=== PATIENT | male | born 1955 | race Caucasian/White ===

== ENCOUNTER 2021-12-23 09:38 | Outpatient (CLI) | payer OTHER, SELFPAY ==
--- NOTE | ~2021-12-23 | US_ITS ---
EXAMINATION: US abdomen complete DATE: 12/23/2021 10:09 INDICATION: Right upper quadrant pain TECHNIQUE: Multiple grayscale and Doppler ultrasound images of the abdomen were obtained. COMPARISON: None available FINDINGS: Bowel gas obscures visualization of the pancreas. The liver is normal with normal echogenic ity and echotexture. No surface nodularity. Normal hepatopetal flow in the main portal vein. The gall bladder is difficult to image due to its position in the abdomen however no definite abnormality of t he gallbladder is seen. The normal common bile duct measures 4 mm. There was no sonographic [place] si gn. The visualized portions of the aorta and inferior vena cava are normal. The right kidney measures 11.4 x 3.9 x 5.9 cm. The left kidney measures 10.8 x 4.4 x 5.7 cm. The kidn eys demonstrate normal parenchymal echogenicity. There is no hydronephrosis. The spleen is normal in appearance and measures 8.6 cm. IMPRESSION: 1. No sonographic correlate for the patient's symptoms. Reviewed, dictated and finalized at location A.
== END 2021-12-23 09:39 | disposition home or self-care (01) ==
LOC: ANHIMG 09:42
PROVIDERS: PCP Family Medicine; Visit Provider Physician Assistant
DX: R10.11 Right upper quadrant pain (principal)
CPT/HCPCS: 76700

== ENCOUNTER → 2023-03-17 13:54 | Outpatient (CLI) | payer OTHER, SELFPAY ==
--- NOTE | ~2023-03-17 | XR_ITS ---
EXAMINATION: XR chest 2V DATE: 03/17/2023 14:04 INDICATION: Cough. TECHNIQUE: Frontal and lateral views of the chest were obtained. COMPARISON: Chest 2 views 11/08/2012 FINDINGS: There is chronic mild elevation of right hemidiaphragm. There is mild atelectasis at the kacie ng bases. No pleural effusion or pneumothorax. The heart size is normal. IMPRESSION: 1. Mild atelectasis at the lung bases. Reviewed, dictated and finalized at location E. UNCHER
== END ==
PROVIDERS: PCP Family Medicine; Visit Provider Physician Assistant
DX: J98.11 Atelectasis (principal); R05.9 Cough, unspecified
CPT/HCPCS: 71046

== ENCOUNTER 2024-04-10 00:10 | Day surgery (SDC) | payer OTHER, SELFPAY ==
[2024-03-30 13:46] VITALS: BMI 35.8
--- OUTSIDE RECORDS SUMMARY | 2024-04-10 00:13 | XMS_ITS | Clinical Summary ---
Author Organization [facility] Address [address] [place] [address]. [place], [place] [id number] [place] [id number] Care Team Providers Care Counterintelligence Analyst Name Role Phone Sj Clemens MD Primary Care Provider [phone] Allergies Active Allergy Reactions Criticality Noted Date Comments Allopurinol Rash Low 08/14/2020 Medications finasteride 5 MG tablet Take 1 tablet (5 mg total) by mouth daily. 07/05/2020 Active losartan 50 MG tablet Take 1 tablet (50 mg total) by mouth daily. 07/07/2020 Active metoprolol tartrate 50 MG tablet Take 1 tablet (50 mg total) by mouth daily. 08/03/2020 Active terazosin 1 MG capsule Take 1 capsule (1 mg total) by mouth daily. 07/01/2020 Active loratadine 10 MG tablet Take 1 tablet (10 mg total) by mouth daily. Active atorvastatin 40 MG tablet Take 0.5 tablets (20 mg total) by mouth daily. 09/01/2020 Active Multiple Vitamin (MULTIVITAMIN ADULT OR) Take 1 tablet by mouth daily. Active Calcium Carbonate (CALCIUM 600 OR) Take 600 mg by mouth 2 (two) times a day. Active febuxostat (ULORIC) 40 MG tablet Take 1 tablet (40 mg total) by mouth daily. 10/20/2022 Active levothyroxine (SYNTHROID) 175 MCG tablet Take 1 tablet (175 mcg total) by mouth every morning. 10/07/2022 Active ibuprofen (MOTRIN) 200 MG tablet Take 2 tablets (400 mg total) by mouth every 6 (six) hours as needed for Pain. Active Active Problems Problem Noted Date Diagnosed Date Acute appendicitis 12/03/2022 BPH with obstruction/lower urinary tract symptom s 10/19/2021 H/O urethral stricture 10/19/2021 Acquired hypothyroidism 04/09/2021 Coronary artery disease invo lving [place] coronary artery of [place] heart without angina pectoris 04/09/2021 Dyslipidemia 04/09/2021 Essential hypertension 04/09/2021 History of coronary angioplasty with insertion o f stent 04/09/2021 Nephrolithiasis 09/01/2020 Encounters Date Type Department Care Team Description 02/28/2024 12:43 PM BOAT BUILDER AND REPAIRER - 02/28/2024 11:59 PM BOAT BUILDER AND REPAIRER Hospital Encounter [facility] [place] [address] Queta Amin, OIL GAUGER Discharge Disposition: Home or Self Care (Routine Discharge) 02/28/[address] [facility] [place] [address] Queta Amin, BONNIE 02/28/2024 Travel 01/30/2024 1:15 PM BOAT BUILDER AND REPAIRER - 01/30/2024 11:59 PM BOAT BUILDER AND REPAIRER Hospital Encounter [facility] [place] [address] Queta Amin, OIL GAUGER Discharge Disposition: Home or Self Care (Routine Discharge) 01/30/[address] [facility] [place] [address] Queta Aimn, OIL GAUGER 01/30/2024 Travel from Last 3 Months Immunizations Name Administration Dates Next Due Flu Vaccine, 3 Yrs 12/16/2015 Fluzone High Dose - >Age 65 (Prefilled Syringe) 12/14/2021 Influenza (Generic) 02/03/2021,12/18/2014,2012 Influenza Adult (Generic) 01/05/2020,12/10/2018, 02/15/2018 MODERNA COVID-19 (12+) MRNA, LNP-S, PF, 100 MCG/ 0.5 ML DOSE 04/25/2020,03/27/2020 Pneumococcal (Pneumovax 23) 02/03/2021 Pneumococcal (Prevnar 13) 11/27/2018 Tdap (Generic) 11/27/2018 Family History Relation Status Comments Father Mother Social History Tobacco Use Types Packs/Day Years Used Date Smoking Tobacco: Never Smokeless Tobacco: Never Tobacco Cessation:Counseling Given: No Alcohol Use Standard Drinks/Week Comments Yes 1.7 (1 standard drink = 0.6 oz p ure alcohol) ocassionally Humiliation, Afraid, Rape, and Kick questionnair e Answer Date Recorded Within the last year, have y ou been afraid of your partner or ex-partner? No 12/08/2022 Within the last year, have y ou been humiliated or emotionally abused in other ways by your partner or ex-partner? No Within the last year, have y ou been kicked, hit, slapped, or otherwise physically hurt by your partner or ex-partner? No 12/08/2022 Within the last year, have y ou been raped or forced to have any kind of sexual activity by your partner or ex-partner? No 12/08/2022 Overall Financial Resource Strain (CARDIA) Answe r Date Recorded How hard is it for you to pa y for the very basics like food, housing, medical care, and heating? Not very hard 12/08/2022 PHQ-2 Answer Date Recorded Patient Health Questionnaire-2 Score 0 03/22/2022 Hunger Vital Sign Answer Date Recorded Within the past 12 months, y ou worried that your food would run out before you got the money to buy more. Never true 12/09/19 23 Within the past 12 months, t he food you bought just didn't last and you didn't have money to get more. Never true 12/08/2022 PRAPARE - Transportation Answer Date Re corded In the past 12 months, has l ack of transportation kept you from medical appointments or from getting medications? No 11/13 In the past 12 months, has l ack of transportation kept you from meetings, work, or from getting things needed for daily living? No 12/08/2022 Housing Stability Vital Sign Answer Tom e Recorded In the last 12 months, was t here a time when you were not able to pay the mortgage or rent on time? No 12/08/2022 In the last 12 months, how many places have you lived? 1 12/08/2022 In the last 12 months, was t here a time when you did not have a steady place to sleep or slept in a intermediate (including now)? No 12/08/2022 Sex and Gender Information Value Date Recorded Sex Assigned at Not on file Legal Sex Male 10:57 AM CDT Gender Identity Male 04/21/2021 10:19 AM BOAT BUILDER AND REPAIRER Sexual Orientation Straight 04/21/2021 10 :19 AM BOAT BUILDER AND REPAIRER Last Filed Vital Signs Vital Sign Reading Time Taken Comments Blood Pressure 147/93 12/10/2022 8:10 AM CDT Pulse 57 12/10/2022 8:10 AM CDT Temperature 36.5 ??C (97.7 ??F) 12/10/2022 8:10 AM CD T Respiratory Rate 19 12/10/2022 8:10 AM CDT Oxygen Saturation 97% 12/10/2022 8:10 AM CDT Inhaled Oxygen Concentration - - Weight 115.8 kg (255 lb 4.7 oz) 12/10/2022 4:53 AM CDT Height 177.8 cm (5' 10 ) 12/03/2022 8:40 AM CDT Body Mass Index 36.63 12/03/2022 8:40 AM CDT Plan of Treatment Health Maintenance Due Date Last Done Comments ASCVD Statin 1955 Colorectal Cancer Screening Colonoscopy (10 Years) 1955 Diabetes: Retinopathy Eye Exam 11/25/1973 Zoster Vaccines (1 of 2) 11/25/2005 RSV Immunization or 60+ Years (1 - Risk 60-74 years 1-dose series) 2015 Annual Medicare Wellness Visit 11/25/2020 Hemoglobin A1C 03/25/2023 09/22/2022, 04/22/2021 COVID-19 Vaccine ( season) 2023 04/25/2020, 03/27/2020 Influenza Adult (#1) 2023 12/14/2021, 02/03/2021, 01/05/2020, Additional history exists Kidney Health Evaluation 02/27/2025 02/28/2024 Lipid Panel 02/27/2025 02/28/2024, 01/12, 09/22/2022, Additional history exists DTaP, Tdap and Td Vaccines (2 - Td or Tdap) 11/27/2028 11/27/2018 Pneumococcal Vaccine: 65+ Years Completed 02/03/2021, 11/27/2018 Hepatitis C Completed 02/28/2024, 01/30/2024 Meningococcal B Vaccine Aged Out No l onger eligible based on patient's age to complete this topic Meningococcal Vaccine Aged Out No akshat mason eligible based on patient's age to complete this topic RSV Immunizations Under 20 Months Aged Out No longer eligible based on patient's age to complete this topic Goals Goal Patient Goal Type Associated Problems Recent Progress Patient-Stated? Author Health - patient able to perform ADLs independently Lifestyle No Joey sanchez, Enrique Villalta, RN Medical Devices Implanted Type Area Special Deputy Sheriff Device Identifier Shelf Expiration Date Model / Serial / Lot Stent Ureteral Pigtail 6fr 24cm Crv Taper Tip - [id number] Implanted:Qty : 1 on 01/16/2021 by Ramírez Loyd MD at [facility] Stent Right: Ureter [employer] [id number] 10/23/2023 [id number] / / [id number] Urolift - [id number] Implanted:Qty : 2 on 01/22/2022 by Ramírez Loyd MD at [facility] Urology [employer] [id number] 08/18/2023 [id number] / / [id number] Explanted Type Area Special Deputy Sheriff Device Identifier Shelf Expiration Date Model / Serial / Lot Stent Bard [place] 6fr X 24cm - [id number] Implanted:Qty : 1 on 08/22/2020 by Ramírez Loyd MD at [facility] Explanted:Qty : 1 on 01/16/2021 by Ramírez Loyd MD at [facility] Left: Ureter [employer] [id number] 08/03/2023 [id number] / / [id number] Procedures Procedure Name Priority Date/Time Associated Diagnosis Comments PROSTATE SPECIFIC ANTIGEN,TOTAL Routine 02/28/2024 1:02 PM BOAT BUILDER AND REPAIRER Hypothyroidism Hyperlipidemia, mixed Chronic kidney disease, unspecified Diabetic complication (CMS/HCC HHS/HCC) Special screening for malignant neoplasm of prostate Need for hepatitis C screening test HEPATITIS C ANTIBODY Routine 02/28/2024 1:02 PM BOAT BUILDER AND REPAIRER Diabetes mellitus (CMS/HCC HHS/HCC) Hypothyroidism Hyperlipidemia, mixed Chronic kidney disease, unspecified Diabetic complication (CMS/HCC HHS/HCC) Special screening for malignant neoplasm of prostate Need for hepatitis C screening test CBC W/DIFF AUTOMATED Routine 02/28/2024 1:02 PM BOAT BUILDER AND REPAIRER Diabetes mellitus (CMS/HCC HHS/HCC) Hypothyroidism Hyperlipidemia, mixed Chronic kidney disease, unspecified Diabetic complication (CMS/HCC HHS/HCC) Special screening for malignant neoplasm of prostate Need for hepatitis C screening test LIPID PANEL Routine 02/28/2024 1:02 PM BOAT BUILDER AND REPAIRER Diabetes mellitus (CMS/HCC HHS/HCC) Hypothyroidism Hyperlipidemia, mixed Chronic kidney disease, unspecified Diabetic complication (CMS/HCC HHS/HCC) Special screening for malignant neoplasm of prostate Need for hepatitis C screening test FERRITIN Routine 02/28/2024 1:02 PM BOAT BUILDER AND REPAIRER Diabetes mellitus (CMS/HCC HHS/HCC) Hypothyroidism Hyperlipidemia, mixed Chronic kidney disease, unspecified Diabetic complication (CMS/HCC HHS/HCC) Special screening for malignant neoplasm of prostate Need for hepatitis C screening test IRON SAT PANEL (IRON,IBC,%SAT) Routine 02/28/2024 1:02 PM BOAT BUILDER AND REPAIRER Diabetes mellitus (CMS/HCC HHS/HCC) Hypothyroidism Hyperlipidemia, mixed Chronic kidney disease, unspecified Diabetic complication (CMS/HCC HHS/HCC) Special screening for malignant neoplasm of prostate Need for hepatitis C screening test ALBUMIN URINE RANDOM W/CREATININE Routine 02/28/2024 12:57 PM BOAT BUILDER AND REPAIRER Diabetes mellitus (CMS/HCC HHS/HCC) HEPATITIS C ANTIBODY Routine 01/30/2024 1:27 PM BOAT BUILDER AND REPAIRER Hypothyroidism Mixed hyperlipidemia Chronic kidney disease, unspecified Diabetic complication (CMS/HCC HHS/HCC) Screening for prostate cancer Special screening examination for viral disease CBC W/DIFF AUTOMATED Routine 01/30/2024 1:27 PM BOAT BUILDER AND REPAIRER Hypothyroidism Mixed hyperlipidemia Chronic kidney disease, unspecified Diabetic complication (CMS/HCC HHS/HCC) Screening for prostate cancer Special screening examination for viral disease LIPID PANEL Routine 01/30/2024 1:27 PM BOAT BUILDER AND REPAIRER Hypothyroidism Mixed hyperlipidemia PROSTATE SPECIFIC ANTIGEN,SCREENING Routine 01/30/2024 1:27 PM BOAT BUILDER AND REPAIRER Screening for prostate cancer FERRITIN Routine 01/30/2024 1:27 PM BOAT BUILDER AND REPAIRER Hypothyroidism Mixed hyperlipidemia Chronic kidney disease, unspecified Diabetic complication (CMS/HCC HHS/HCC) Screening for prostate cancer Special screening examination for viral disease IRON SAT PANEL (IRON,IBC,%SAT) Routine 01/30/2024 1:27 PM BOAT BUILDER AND REPAIRER Hypothyroidism Mixed hyperlipidemia Chronic kidney disease, unspecified Diabetic complication (CMS/HCC HHS/HCC) Screening for prostate cancer Special screening examination for viral disease HEMOGLOBIN, GLYCOSYLATED Routine 09/22/2022 8:57 AM CDT Type 2 diabetes mellitus with complications (CMS/HCC HHS/HCC) Obesity, unspecified Mixed hyperlipidemia Hypothyroidism Gout, unspecified Essential (primary) hypertension Encounter for long-term (current) drug use from Last 3 Months or Most Recently Relevant to Health Maintenance Results * IRON SAT PANEL (IRON,IBC,%SAT) (02/28/2024 1:02 PM BOAT BUILDER AND REPAIRER) Only the most recent of2 resultswithin the time period is included. IRON 118 65.0 - 175.0 MCG/DL 02/28/2024 2:17 PM BOAT BUILDER AND REPAIRER [facility] IRON BINDING CAPACITY 308 250 - 450 MCG/DL 02/28/2024 2:17 PM [facility] IRON SATURATION 38 20 - 55 % 4 2:17 PM [facility] 02/28/2024 1:02 PM BOAT BUILDER AND REPAIRER Queta Amin OIL GAUGER LABORATORY Final Resu lt Performing Organization Address City/[facility]/ZIP Co de Phone Number [facility] [address] [place] [address], [place] [phone] * PROSTATE SPECIFIC ANTIGEN,TOTAL (02/28/2024 1:02 PM BOAT BUILDER AND REPAIRER) PSA 0.08 <4.00 NG/ML 02/28/2024 2:21 PM BOAT BUILDER AND REPAIRER [facility] Comment: Test was performed using the Siemens method. ??Results obtained with other assay methods or kits cannot be used interchangeably with results obtained by the Siemens method. 02/28/2024 1:02 PM BOAT BUILDER AND REPAIRER Queta Amin OIL GAUGER LABORATORY Final Resu lt Performing Organization Address [facility] Co de Phone Number [facility] [address] [place] [address], [place] [phone] * (ABNORMAL) LIPID PANEL (02/28/2024 1:02 PM BOAT BUILDER AND REPAIRER) Only the most recent of2 resultswithin the time period is included. CHOLESTEROL 142 <200 MG/DL 02/28/2024 2:17 PM BOAT BUILDER AND REPAIRER [facility] TRIGLYCERIDES 241(H) <150 MG/DL 02/28/2024 2:17 PM BOAT BUILDER AND REPAIRER [facility] HDL 50 >40.0 MG/DL 02/28/2024 2:17 PM BOAT BUILDER AND REPAIRER [facility] LDL (CALCULATED) 44 <100 MG/DL 02/28/2024 2:17 PM BOAT BUILDER AND REPAIRER [facility] NON HDL CHOLESTEROL 92 <130 MG/DL 02/28/2024 2:17 PM BOAT BUILDER AND REPAIRER [facility] CHOL/HDL RATIO 2.8 0.0 - 4.5 02/28/2024 2:17 PM [facility] VLDL CALCULATION 48 5 - 55 MG/DL 02/28/2024 2:17 PM [facility] LIPID INTERPRETATION 02/28/2024 2:17 PM [facility] Comment: NIH CONCENSUS REPORT RECOMMENDATIONS: ?ADULT ?CHILD ??LOW RISK: ?CHOLESTEROL ? <200 ? <170 ?TRIGLYCERIDE ?<150 ?--- ?HDL ? >=60 ?--- ?LDL ? <100 ? <110 ??BORDERLINE: ?CHOLESTEROL ? 200-239 ?? 170-199 ?TRIGLYCERIDE ?150-199 ? --- ?HDL ?40-59 ?--- ?LDL ? 100-159 ?? 110-129 ??HIGH RISK: ?CHOLESTEROL ? >=240 ?>=200 ?TRIGLYCERIDE ?>=200 ? --- ?HDL ?<40 ?--- ?LDL ? >=160 ?>=130 02/28/2024 1:02 PM BOAT BUILDER AND REPAIRER Queta Amin OIL GAUGER LABORATORY Final Resu lt Performing Organization Address City/[facility] Co de Phone Number [facility] [address] [place] [address], * HEPATITIS C ANTIBODY W/REFLEX (02/28/2024 1:02 PM BOAT BUILDER AND REPAIRER) Only the most recent of2 resultswithin the time period is included. Pathologist [facility] HEPATITIS C AB NON-REACTI VE NON-REACTI VE 02/28/2024 3:05 PM BOAT BUILDER AND REPAIRER [facility] 02/28/2024 1:02 PM BOAT BUILDER AND REPAIRER Queta Amin OIL GAUGER LABORATORY Final Resu lt Performing Organization Address [facility] Co de Phone Number [facility] [address] [place] [address], [place] [phone] * (ABNORMAL) CBC W/DIFF AUTOMATED (02/28/2024 1:02 PM BOAT BUILDER AND REPAIRER) Only the most recent of2 resultswithin the time period is included. WBC 7.33 4.5 - 11.0 x10'3/uL 02/28/2024 2:05 PM BOAT BUILDER AND REPAIRER [facility] RBC 4.51(L) 4.70 - 6.10 x10'6/uL 02/28/2024 2:05 PM [facility] HGB 13.6(L) 14.0 - 18.0 G/DL 02/28/2024 2:05 PM [facility] HCT 42.1(L) 43.0 - 54.0 % 02/28/2024 2:05 PM [facility] MCV 93.3 80.0 - 94.0 FL 02/28/2024 2:05 PM [facility] MCH 30.2 27.0 - 31.0 PG 02/28/2024 2:05 PM [facility] MCHC 32.3 32.0 - 36.0 G/DL 02/28/2024 2:05 PM [facility] RDW 13.4 11.5 - 14.5 % 02/28/2024 2:05 PM [facility] PLT 178 130 - 400 x10'3/uL 02/28/2024 2:05 PM [facility] MPV 11.6 9.3 - 12.2 FL 02/28/2024 2:05 PM [facility] DIFFERENTIAL TYPE AUTOMATED DIFFERENTIAL 02/28/2024 2:05 PM [facility] NEUTROPHILS % 67.7 % 02/28/2024 2:05 PM [facility] LYMPHOCYTES % 21.1 % 02/28/2024 2:05 PM [facility] MONOCYTES % 7.0 % 02/28/2024 2:05 PM [facility] EOSINOPHILS 3.0 % 02/28/2024 2:05 PM [facility] BASOPHILS 0.4 % 02/28/2024 2:05 PM [facility] IMMATURE GRANS % 0.8 % 02/28/20 2:05 PM [facility] ABS. NEUTROPHILS 4.96 1.80 - 7.70 x10'3/uL 02/28/2024 2:05 PM [facility] ABS. LYMPHOCYTES 1.55 1.00 - 4.80 x10'3/uL 02/28/2024 2:05 PM BOAT BUILDER AND REPAIRER [facility] ABS. MONOCYTES 0.51 0.30 - 0.82 x10'3/uL 02/28/2024 2:05 PM BOAT BUILDER AND REPAIRER [facility] ABS. EOSINOPHILS 0.22 0.04 - 0.54 x10'3/uL 02/28/2024 2:05 PM BOAT BUILDER AND REPAIRER [facility] ABS. BASOPHILS 0.03 0.01 - 0.08 x10'3/uL 02/28/2024 2:05 PM BOAT BUILDER AND REPAIRER [facility] ABS. IMMATURE GRANULOCYTES 0.06 0.00 - 0.49 x10'3/uL 02/28/2024 2:05 PM BOAT BUILDER AND REPAIRER [facility] 02/28/2024 1:02 PM BOAT BUILDER AND REPAIRER Queta Amin OIL GAUGER LABORATORY Final Resu lt Performing Organization Address City/[facility]/ZIP Co de Phone Number [facility] [address] [place] [address], [place] [phone] * FERRITIN (02/28/2024 1:02 PM BOAT BUILDER AND REPAIRER) Only the most recent of2 resultswithin the time period is included. Pathologist [facility] FERRITIN 218.6 8.0 - 388.0 NG/ML 02/28/2024 2:21 PM BOAT BUILDER AND REPAIRER [facility] 02/28/2024 1:02 PM BOAT BUILDER AND REPAIRER Queta Amin NP LABORATORY Final Resu lt [facility] [address] [place] [address], [place] [phone] * MICROALBUMIN CREAT RATIO, URINE RANDOM (02/28/2024 12:57 PM BOAT BUILDER AND REPAIRER) CREATININE (U) 107.0 39 - 259 MG/DL 02/28/2024 2:20 PM BOAT BUILDER AND REPAIRER [facility] MICROALBUMIN (U) 0.5 <2.0 mg/dL 02/28/20 2:20 PM BOAT BUILDER AND REPAIRER [facility] ALBUMIN/CREAT RATIO 4.9 <30 MG/G 02/28/2024 2:20 PM BOAT BUILDER AND REPAIRER [facility] URINE SPECIMEN / Unknown 02/28/2024 12:57 PM BOAT BUILDER AND REPAIRER Queta Amin OIL GAUGER URINE ORDERABLES Final Res ult Performing Organization Address [facility] Co de Phone Number [facility] [address] [place] [address], [place] [phone] * PROSTATE SPECIFIC ANTIGEN,SCREENING (01/30/2024 1:27 PM BOAT BUILDER AND REPAIRER) PSA 0.07 <4.00 NG/ML 01/30/2024 3:00 PM BOAT BUILDER AND REPAIRER [facility] Comment: Test was performed using the Siemens method. ??Results obtained with other assay methods or kits cannot be used interchangeably with results obtained by the Siemens method. 01/30/2024 1:27 PM BOAT BUILDER AND REPAIRER Queta Amin OIL GAUGER LABORATORY Final Resu lt Performing Organization Address City/[facility] Co de Phone Number [facility] [address] [place] [address], [place] [phone] * (ABNORMAL) HEMOGLOBIN, GLYCOSYLATED (09/22/2022 8:57 AM CDT) HGB A1C 6.7(H) <5.7 % 09/22/2022 11:11 AM CDT [facility] Comment: ADA GUIDELINES 2010 5.7 TO 6.4% INCREASED RISK OF DIABETES > OR = 6.5% CONSISTENT WITH DIABETES ESTIMATED AVG GLUCOSE 146 mg/dL 09/22/2022 11:11 AM CDT [facility] 09/22/2022 8:57 AM CDT Ranjit GALINDO LABORATORY Final Result [facility] [address] [place] [address], from Last 3 Months or Most Recently Relevant to Health Maintenance Insurance [employer] Advance Directives * Full Code (Latest Code Status on File) Date Activated Date Inactivated Comments 12/03/2022 4:26 PM 12/10/2022 1:33 PM * Full Code Date Activated Date Inactivated Comments 12/03/2022 12:40 PM 12/03/2022 4:26 PM * Full Code Date Activated Date Inactivated Comments 01/16/2021 1:51 PM 01/16/2021 4:56 PM Care Teams Counterintelligence Analyst Relationship Specialty Start Date End Date Sj Clemens MD PCP - General FAMILY PRACTICE 12/03/20
--- OUTSIDE RECORDS SUMMARY | 2024-04-10 00:13 | XMS_ITS | Encounter Summary ---
Author Organization [facility] Address [address] [place] [address]. [place], [place] [id number] [place] [id number] Care Team Providers Care Canal Boat Captain Name Role Phone Fer Viveros MD Primary Care Provider [phone] Sj Clemens MD Primary Care Provider [phone] Encounter Details Date Type Department Care Team (Late st Contact Info) Description 08/19/2020 Prep for Procedure [facility] Pre-Admission Testing [address] [address] Ramírez Loyd MD [address] [place] [address] KRYSTEN REGAN [address] Social History Tobacco Use Types Packs/Day Years Used Date Smoking Tobacco: Never Smokeless Tobacco: Never Alcohol Use Standard Drinks/Week Comments Yes 1.7 (1 standard drink = 0.6 oz p ure alcohol) PHQ-2 Answer Date Recorded PHQ-2 Score - If the patient scores above 3, please move on to questions 3-9 0 08/15/2020 Sex and Gender Information Value Date Recorded Sex Assigned at Not on file Legal Sex Male 10:57 AM CDT Gender Identity Male 04/21/2021 10:19 AM RESPIRATORY PRACTITIONER Sexual Orientation Straight 04/21/2021 10 :19 AM RESPIRATORY PRACTITIONER COVID-19 Exposure Response Date Recorded In the last month, have you been in contact with someone who was confirmed or suspected to have Coronavirus / COVID-19? No / Unsure 08/22/2020 10:57 AM CDT documented as of this encounter Plan of Treatment Not on file documented as of this encounter Visit Diagnoses Diagnosis Preop examination- Primary Preoperative examination, unspecified documented in this encounter Additional Health Concerns Infection Onset Date Last Indicated Resolved Time COVID-19 Rule Out 08/21/2020 08/21/2020 08/21/2020 12:06 PM CDT COVID-19 Rule Out 08/21/2020 08/21/2020 08/21/2020 1:46 PM CDT Assessment Noted Time PHQ-9 Depression Total Score: 0 08/16/19 11:41 AM CDT documented as of this encounter Care Teams Canal Boat Captain Relationship Specialty Start Date End Date Fer Viveros MD [address] [place], [place] [id number] PCP - [facility] 08/14/20 12/02/20 Sj Clemens MD [address] [place] [id number] PCP - [facility] 12/03/20 documented as of this encounter
--- OUTSIDE RECORDS SUMMARY | 2024-04-10 00:13 | XMS_ITS | Patient Health Summary ---
Author Organization [facility] Address [address] [place] [address] Care Team Providers Care Wire Basket Maker Name Role Phone Ester Viveros MD Primary Care Provider [phone] Note from [facility],non-owned Affiliates and Associated Physician Practices is amultiple site organization consisting of ambulatory clinics and hospital sitesin [place], [place], [place] and [place]. This disclosure is being madepursuant to the Care Everywhere program and may not contain all information available regarding this patient. Last updated 17.[facility] [employer] Allergies * Allopurinol(Rash) -Low Criticality Medications * Be aware that medications may not be up to date on this document. Alwaysverify current medications with the patient. * clopidogrel (PLAVIX) 75 MG tablet Take 75 mg by mouth daily. * rosuvastatin (CRESTOR) 10 MG tablet Take 10 mg by mouth daily. * loratadine (CLARITIN) 10 MG tablet Take 10 mg by mouth daily. * levothyroxine (SYNTHROID) 175 MCG tablet Take 175 mcg by mouth daily before breakfast. * metoprolol tartrate IR (LOPRESSOR) 50 MG tablet Take 50 mg by mouth 2 times daily. * aspirin 325 MG tablet Take 325 mg by mouth daily. * Calcium Carbonate-Vit D-Min (CALCIUM 1200 PO) Take 2,400 mg by mouth daily. Social History Tobacco Use Types Packs/Day Years Used Date Smoking Tobacco: Never Sex and Gender Information Value Date Recorded Sex Assigned at Not on file Gender Identity Not on file Sexual Orientation Not on file Last Filed Vital Signs Vital Sign Reading Time Taken Comments Blood Pressure 151/81 08/24/2010 10:08 AM CDT Pulse 65 08/24/2010 9:46 AM CDT Temperature 36.8 ??C (98.3 ??F) 08/24/2010 9:46 AM CD T Respiratory Rate 18 08/24/2010 9:46 AM CDT Oxygen Saturation 97% 08/24/2010 9:46 AM CDT Inhaled Oxygen Concentration - - Weight 103.4 kg (228 lb) 08/24/2010 10:04 AM CDT Height 177.8 cm (5' 10 ) 08/24/2010 10:04 AM CDT Body Mass Index 32.71 08/24/2010 10:04 AM CDT Procedures * FINE NEEDLE ASPIRATION(Performed 10/24/2003) Results * FINE NEEDLE ASPIRATION (10/24/2003 2:00 PM CDT) Result CASE NUMBER [id number] Comment: ORDERING PHYSICIAN ??SUSAN MATOS SPECIMEN TYPE ?Thyroid Aspirate Date ? 10/25/2003 Physician ?Dr. Spencer Specimen Adequacy ?Satisfactory for evaluation. Cell Pathology ? cellular specimen with many small groups of follicular cells present, colloid seen, features of papillar carcinoma are not seen. *Diagnosis ? Follicular lesion (see comment) COMMENT ?? the follicular cells are cytologically benign. ??A benign follicular lesion (goiter or adenoma) is favored. ??However, malignancy (follicular carcinoma) can not be completely excluded based on cytology. Therefore, if the lesion is suspicious or persists, a biopsy is recommended. [place]. ?10/28/2003 1204 <1> Pathologist ?Iqra Mcclendon M.D. CPT code ? 54404 MISCELLANEOUS SAMPLES / Unknown 10/24/2003 2:00 PM CDT 10/25/2003 7:41 AM CDT Historical Provider LAB - PATHOLOGY/C YTOLOGY ORDERABLES Care Teams Wire Basket Maker Relationship Specialty Start Date End Date Ester Viveros MD [address] [place] [id number] PCP - General 08/24/10
--- OUTSIDE RECORDS SUMMARY | 2024-04-10 00:13 | XMS_ITS | Clinical Summary ---
Author Organization [facility] Address [address] [facility] [place] [address] Care Team Providers Care Photovoltaic Power Systems Engineer Name Role Phone Ester Viveros MD Primary Care Provider [phone] Source Comments [facility],non-owned Affiliates and Associated Physician Practices is amultiple site organization consisting of ambulatory clinics and hospital sitesin [place], [place], [place] and [place]. This disclosure is being madepursuant to the Care Everywhere program and may not contain all information available regarding this patient. Last updated 17.[facility] [employer] [facility] [employer] Allergies Active Allergy Reactions Criticality Noted Date Comments Allopurinol Rash Low 08/24/2010 Medications * Be aware that medications may not be up to date on this document. Alwaysverify current medications with the patient. Medication Sig Dispensed Refills Start Date End Date Status clopidogrel (PLAVIX) 75 MG tablet Take 75 mg by mouth daily. Active rosuvastatin (CRESTOR) 10 MG tablet Take 10 mg by mouth daily. Active loratadine (CLARITIN) 10 MG tablet Take 10 mg by mouth daily. Active levothyroxine (SYNTHROID) 175 MCG tablet Take 175 mcg by mouth daily before breakfast. Active metoprolol tartrate IR (LOPRESSOR) 50 MG tablet Take 50 mg by mouth 2 times daily. Active aspirin 325 MG tablet Take 325 mg by mouth daily. Active Calcium Carbonate-Vit D-Min (CALCIUM 1200 PO) Take 2,400 mg by mouth daily. Active Social History Tobacco Use Types Packs/Day Years [...] Mass Index 32.71 08/24/2010 10:04 AM CDT Plan of Treatment Health Maintenance Due Date Last Done Comments COLOGUARD (AGES 45-75) - COL ON CA SCREENING 1955 COLON MONITORING 1955 COLONOSCOPY - COLON CA SCREENING 1955 CT COLONOGRAPHY - COLON CA SCREENING 1955 Colorectal Cancer Screening 1955 FIT - COLON CA SCREENING 1955 FLEX SIG - COLON CA SCREENING 1955 HEPATITIS C SCREENING 11/21/1973 DTAP/TDAP/TD VACCINES (1 - Tdap) 11/25/1974 PNEUMOCOCCAL VACCINE 50+ (1 of 1 - PCV) 11/25/2005 ZOSTER VACCINE (1 of 2) 11/25/2005 COVID-19 VACCINE ( - 2023-2 5 season) 2023 INFLUENZA VACCINE (#1) 2023 DEPRESSION SCREENING 03/14/2024 Respiratory Syncytial Virus (RSV) Vaccine Pt: or over 60 yrs (1 - 1-dose 75+ series) 11/25/2030 HEPATITIS B VACCINE Aged Out No longe r eligible based on patient's age to complete this topic HIB VACCINE Aged Out No longer eligi ble based on patient's age to complete this topic HPV VACCINE Aged Out No longer eligi ble based on patient's age to complete this topic MENINGOCOCCAL (Group B) VACCINE Aged Out No longer eligible based on patient's age to complete this topic MENINGOCOCCAL VACCINE Aged Out No akshat mason eligible based on patient's age to complete this topic Care Teams Photovoltaic Power Systems Engineer Relationship Specialty Start Date End Date Ester Viveros MD [address] [place] [address] PCP - General 08/24/10
--- OUTSIDE RECORDS SUMMARY | 2024-04-10 00:13 | XMS_ITS | Referral Summary ---
Author Organization [facility] Address [address] [facility] [place] [address] Care Team Providers Care Community Chest Officer Name Role Phone Ester Viveros MD Primary Care Provider [phone] Source Comments [facility],non-owned Affiliates and Associated Physician Practices is amultiple site organization consisting of ambulatory clinics and hospital sitesin [place], [place], [place] and [place]. This disclosure is being madepursuant to the Care Everywhere program and may not contain all information available regarding this patient. Last updated 17.[facility] [employer] Allergies Active Allergy Reactions Criticality Noted Date [...] 08/24/2010 10:04 AM CDT Plan of Treatment Not on file Care Teams Community Chest Officer Relationship Specialty Start Date End Date Ester Viveros MD [address] [place] [address] PCP - General 08/24/10
[2024-04-10 09:29] VITALS: BP 112/72; PULSE 64; RESP 18; TEMP 36.2; O2SAT 97
[2024-04-10] MEDS: LACTATED RINGERS 1,000 ML 150 ML IV CONT (09:35)
--- NOTE | 2024-04-10 09:45 | WPDANESEPPF ---
Anes - Initial Pre Proc Eval Procedure: Operation Date: 04/10/24 11:00 Proposed Procedures p Screening Colonoscopy - Bud Ozuna MD Date/Time: 04/10/24 09:45 Surgeon: Bud Ozuna MD Pre Op Diagnosis: personal hx colon polyps Patient Data Age: 68 Gender: M Height: 1.75 m Weight: 112.3 kg Last Vital Signs Temp 36.2 C L 04/10/24 09:29 Pulse 64 04/10/24 09:29 Resp 18 04/10/24 09:29 BP 112/72 04/10/24 09:29 Pulse Ox 97 04/10/24 09:29 O2 Del Method Room Air 04/10/24 09:29 Allergies Allergy/AdvReac Type Severity Reaction Status Date / Time Sulfa (Sulfonamide Allergy Intermediate Hives / Verified 04/10/24 09:27 Antibiotics) Red Face allopurinol Allergy Unknown Rash Verified 04/10/24 09:27 Home Medications ?Medication ?Instructions ?Recorded ?Confirmed ?Type ferrous sulfate 325 mg (65 mg 325 mg PO DAILY 12/14/21 03/30/24 History iron) tablet loratadine 10 mg tablet (Claritin) 20 mg PO DAILY 12/14/21 04/10/24 History multivitamin 1 tablet PO DAILY 12/14/21 04/10/24 History calcium 600 mg (as 1 tablet PO DAILY 07/20/22 04/10/24 History carbonate)-vitamin D3 5 mcg (200 unit) tablet atorvastatin 40 mg tablet 20 mg (1/2 x 40 mg) PO DAILY #90 06/24/23 04/10/24 Rx tabs metoprolol tartrate 50 mg tablet 50 mg PO DAILY #90 tabs 10/21/23 04/10/24 Rx diclofenac sodium 1 % topical gel 2 g topical QID #100 grams 10/28/23 04/10/24 Rx (Voltaren Arthritis Pain) febuxostat 40 mg tablet (Uloric) 40 mg PO DAILY #90 tabs 10/28/23 04/10/24 Rx omeprazole 40 mg capsule,delayed 40 mg PO DAILY #90 caps 12/09/23 04/10/24 Rx release terazosin 1 mg capsule 1 mg PO DAILY #90 caps 12/09/23 04/10/24 Rx finasteride 5 mg tablet See Rx Instructions .Route 12/13/23 04/10/24 Rx .COMPLEX #90 tabs metformin 500 mg tablet,extended 500 mg PO BID #180 tabs 12/16/23 03/30/24 Rx release 24 hr levothyroxine 175 mcg tablet See Rx Instructions .Route 03/21/24 04/10/24 Rx .COMPLEX #90 tabs losartan 50 mg tablet See Rx Instructions .Route 03/21/24 04/10/24 Rx .COMPLEX #90 tabs Patient hx anesthesia problems: none Family hx anesthesia problems: none Results Review: All pre-operative results and documents have been reviewed as part of the pre-operative evaluation. [facility] Past Medical History Medical History (Updated 04/10/24 @ 09:46 by Tomy Neri DO) Asthma Essential (primary) hypertension Type 2 diabetes mellitus with unspecified complications Mixed hyperlipidemia Disorders of bursae and tendons in shoulder region, unspecified Stress incontinence after surgical procedure Surgical History Surgical History (Updated 04/10/24 @ 09:46 by Tomy Neri DO) History of coronary artery stent placement S/P urological surgery Hx of appendectomy H/O dilation of urethra History of lithotripsy Family History Family History Father Diabetes mellitus Family history of elevated blood lipids Family history of coronary artery disease Mother Diabetes mellitus Family history of Alzheimer's disease Sibling Diabetes mellitus Grandparent Family history of glaucoma Social History Social History Smoking status: Never smoker Alcohol intake: current Lack of Transportation: No Lack of Food: Never True Current Housing: I Have Housing Concerned About Future Housing: No Difficulty Paying Gas/Electric Bills: No Difficulty Paying for Meds: No Currently Unemployed: No Education: Associate Degree Difficulty w/ Childcare or Family Care: No Anes - Eval Final PreProcedure Day of Procedure 04/10/24 09:45 Patient weight: obese Heart: regular rate and rhythm Lungs: clear to auscultation Airway: Mallampati scale class II Neurological: alert and oriented Last oral intake: >/= 8 hours ASA classification: III Emergent: no Anesthetic plan: proceed Anesthesia type and monitoring: general GIVS and standard monitoring Results Review: All pre-operative results and documents have been reviewed as part of the pre-operative evaluation. Informed Consent: The patient's anesthetic plan and its attendant risks and benefits were discussed with the patient/family/POA. Questions were solicited and answers provided to the satisfaction of the patient/family/POA.
--- NOTE | 2024-04-10 10:47 | PM.HPGS ---
History of Present Illness History of Present Illness Consent: Risks, benefits, and alternatives have been discussed and questions answered. Patient agrees to proceed with procedure. Chief complaint: personal hx colon polyps Narrative: Olaf James is a 68 year old male with colon polyp in 2019 Review of Systems Review of Systems: All systems reviewed & are unremarkable except as noted in HPI and below PMFSH Past Medical History Medical History (Updated 04/10/24 @ 09:46 by Tomy Neri DO) Asthma Essential (primary) hypertension Type 2 diabetes mellitus with unspecified complications Mixed hyperlipidemia Disorders of bursae and tendons in shoulder region, unspecified Stress incontinence after surgical procedure Surgical History Surgical History (Updated 04/10/24 @ 09:46 by Tomy Neri DO) History of coronary artery stent placement S/P urological surgery Hx of appendectomy H/O dilation of urethra History of lithotripsy Family History Family History Father Diabetes mellitus Family history of elevated blood lipids Family history of coronary artery disease Mother Diabetes mellitus Family history of Alzheimer's disease Sibling Diabetes mellitus Grandparent Family history of glaucoma Social History Social History Smoking status: Never smoker Alcohol intake: current Lack of Transportation: No Lack of Food: Never True Current Housing: I Have Housing Concerned About Future Housing: No Difficulty Paying Gas/Electric Bills: No Difficulty Paying for Meds: No Currently Unemployed: No Education: Associate Degree Difficulty w/ Childcare or Family Care: No Meds Home Medications and Allergies Home Medications ?Medication ?Instructions ?Recorded ?Confirmed ?Type ferrous sulfate 325 mg (65 mg 325 mg PO DAILY 12/14/21 03/30/24 History iron) tablet loratadine 10 mg tablet (Claritin) 20 mg PO DAILY 12/14/21 04/10/24 History multivitamin 1 tablet PO DAILY 12/14/21 04/10/24 History calcium 600 mg (as 1 tablet PO DAILY 07/20/22 04/10/24 History carbonate)-vitamin D3 5 mcg (200 unit) tablet atorvastatin 40 mg tablet 20 mg (1/2 x 40 mg) PO DAILY #90 06/24/23 04/10/24 Rx tabs metoprolol tartrate 50 mg tablet 50 mg PO DAILY #90 tabs 10/21/23 04/10/24 Rx diclofenac sodium 1 % topical gel 2 g topical QID #100 grams 10/28/23 04/10/24 Rx (Voltaren Arthritis Pain) febuxostat 40 mg tablet (Uloric) 40 mg PO DAILY #90 tabs 10/28/23 04/10/24 Rx omeprazole 40 mg capsule,delayed 40 mg PO DAILY #90 caps 12/09/23 04/10/24 Rx release terazosin 1 mg capsule 1 mg PO DAILY #90 caps 12/09/23 04/10/24 Rx finasteride 5 mg tablet See Rx Instructions .Route 12/13/23 04/10/24 Rx .COMPLEX #90 tabs metformin 500 mg tablet,extended 500 mg PO BID #180 tabs 12/16/23 03/30/24 Rx release 24 hr levothyroxine 175 mcg tablet See Rx Instructions .Route 03/21/24 04/10/24 Rx .COMPLEX #90 tabs losartan 50 mg tablet See Rx Instructions .Route 03/21/24 04/10/24 Rx .COMPLEX #90 tabs Allergies Allergy/AdvReac Type Severity Reaction Status Date / Time Sulfa (Sulfonamide Allergy Intermediate Hives / Verified 04/10/24 09:27 Antibiotics) Red Face allopurinol Allergy Unknown Rash Verified 04/10/24 09:27 Vital Signs Vital Signs - 24 hr 04/10/24 09:29 Temperature 97.1 F L Pulse Rate 64 Respiratory Rate 18 Blood Pressure 112/72 Pulse Oximetry 97 Oxygen Delivery Room Air Exam Const: General: comfortable and no acute distress HENMT: Face/Nose/Sinus: Normal nares present Eyes: General: appearance normal, both eyes and all related structures Neck: Neck: no JVD Resp: Auscultation: clear to auscultation bilaterally Cardio: Rate: regular rate Rhythm: regular rhythm GI: Inspection: non-distended GI Palp: Yes Soft to palpation Skin: General skin exam: normal color Neuro: General: gait normal Speech: normal speech Extrem: General: normal to inspection Psych: Mental Status: mental status grossly normal Assessment and Plan Assessment and plan (1) Polyp of colon: Code(s): K63.5 - Polyp of colon Status: Acute Assessment and Plan: colonoscopy
[2024-04-10 11:09] VITALS: BP 109/62; PULSE 73; RESP 16; O2SAT 96
[2024-04-10 11:19] VITALS: BP 113/66; PULSE 59; RESP 20; O2SAT 97
[2024-04-10 11:29] VITALS: BP 115/64; PULSE 57; RESP 16; O2SAT 96
== END 2024-04-10 11:34 | disposition home or self-care (01) ==
PROVIDERS: PCP Family Medicine; Referring Provider Nurse Practitioner Family; Visit Provider Internal Medicine Gastroenterology
PROC: 0DJD8ZZ Inspection of Lower Intestinal Tract, Via Natural or Artificial Opening Endoscopic (ICD-10-PCS; CPT 45378; principal; 2024-04-10 11:00)
DX: Z12.11 Encounter for screening for malignant neoplasm of colon (principal); K57.30 Diverticulosis of large intestine without perforation or abscess without bleeding; K64.8 Other hemorrhoids; Z86.0100 Personal history of colon polyps, unspecified; E11.9 Type 2 diabetes mellitus without complications; Z79.84 Long term (current) use of oral hypoglycemic drugs; E66.9 Obesity, unspecified; Z68.36 Body mass index [BMI] 36.0-36.9, adult
CPT/HCPCS: G0105; J2003; J2704; J7120